=== PATIENT | female | born 1980 | race Caucasian/White ===

== ENCOUNTER → 2024-07-25 10:48 | Outpatient (REF) | payer OTHER, SELFPAY | LOC: HWWDC 10:48 | PROVIDERS: ATTENDING PHYSICIAN Physician Assistant Medical | DX: Z12.31 Encounter for screening mammogram for malignant neoplasm of breast (principal) | CPT/HCPCS: 77063; 77067 ==

== ENCOUNTER 2025-02-02 10:51 | Emergency (ER) | payer OTHER, SELFPAY ==
[2025-02-02 10:54] VITALS: BP 151/96
--- NOTE | 2025-02-02 12:42 | ED.GENMED ---
History of Present Illness
General
Chief Complaint: Musculo-Skeletal Complaint
Source: patient
Exam Limitations: none
Time Seen by Provider: 02/02/25 11:17
Nursing documentation reviewed up to this point in time: agreed with
History of Present Illness
History of Present Illness:
44-year-old female with no reported chronic medical issues presents to the ER for evaluation of right leg pain. Patient reports that symptoms started last week and have been constant since that time. She reports pain in the right hip and posterior
thigh radiates behind the knee. Worse with movement. No relieving factors noted. She says that she was seen by her PCP who started her on prednisone 10 mg daily as well as cyclobenzaprine for her symptoms; this was not helping and so yesterday
patient went to urgent care. She had an x-ray of her hip/low back and was increased to 20 mg daily of prednisone and given prescription for alternate muscle relaxer. These medicines still have not helped and so she came to the ER today for
evaluation. She has not had any low back pain. She denies any paresthesias. Weakness or numbness in the legs. Denies any bowel or bladder incontinence. She denies any trauma or injury. She said she has had sciatica in this leg before but never
to this degree.
Review of Systems
Review of Systems
All Other Systems: ROS reviewed and negative except as documented in HPI and ROS
ABD/GI: Denies abdominal pain
Musculoskeletal: Reports muscle pain (Right leg pain); Denies edema
Neurological: Denies headache, weakness or numbness
Phy Exam
Physical Exam
Physical Exam:
General: Awake, alert; no acute distress
Head: Normocephalic, atraumatic
Eyes: Conjunctiva normal
Throat: Airway intact, handling secretions
Neck: Trachea midline, supple without meningismus
Lungs: Breathing comfortably no distress
Heart: Mild tachycardia
Abd: Soft, non distended, nontender to deep palpation with no abdominal masses
Back: No tenderness in the lumbar or thoracic spine; positive straight leg raise on the right
Neuro: Cranial nerves grossly intact, speech fluid; motor and sensory intact in the lower extremities bilaterally
Extremities: No edema in extremities, equal pulses in all extremities�specifically strong femoral, popliteal, DP/PT pulses in the right lower extremity; she has some mild tenderness over the greater trochanter as well as in the posterior thigh in
the right leg
Scores
Heart Failure Risk
Heart Failure Risk Score: Not Applicable
Heart Score for Chest Pain Patients
STEMI patient?: Not applicable
Withdrawal Assessment of Alcohol
Withdrawal Assessment Completed?: Not applicable
Course
Orders/Labs/Results
Orders:
Orders
02/02/25 12:40
Oxycodone [Roxicodone] 5 mg PO NOW STA
US Periph Venous LOWER Ext RT Urgent
Comment:
Reason For Exam: right leg pain
02/02/25 12:49
Ketorolac [Toradol] 30 mg IM NOW STA
Vital Signs
Initial and Last Documented VS:
Initial Vital Signs
Temp Pulse Resp BP Pulse Ox
37.2 C 130 18 151/96 98
02/02/25 10:54 02/02/25 10:54 02/02/25 10:54 02/02/25 10:54 02/02/25 10:54
Last Documented Vital Signs
Temp Pulse Resp BP Pulse Ox
37.2 C 108 18 151/96 96
02/02/25 10:54 02/02/25 11:15 02/02/25 10:54 02/02/25 10:54 02/02/25 11:15
MDM/Problems Addressed
Differential Diagnosis Includes:
Lumbar radiculopathy/sciatica, muscle strain, DVT
MDM/Problems Addressed:
44-year-old female presents for evaluation of atraumatic pain in the right hip/posterior thigh; has had sciatica in the past but never this degree. Not responding to steroids and muscle relaxers. Vitals and exam as above. Will plan to check
ultrasound to rule out DVT. Pain control. Reassess.
Per tech, ultrasound prelim negative. Patient feeling better after treatment here. Stable for discharge with supportive care. Referral to orthopedist for follow-up. Patient comfortable with this plan. All questions answered.
*Radiology
Radiology exam reviewed: radiology read reviewed
*Pulse Oximetry
Patient hypoxic: no
*Critical Care Note
Total Time (30-74mins, 75-104mins- exclusive of procedures): Not Applicable
Data Reviewed
Source: patient and records (Outpatient records from urgent care)
ED Attending Note
-
Portions of this chart may have been created with voice recognition software.� Occasional wrong word or��sound alike� substitutions may have occurred due to the inherent limitations of voice recognition software.
Discharge Plan
Departure
Patient Disposition: Home (Routine Discharge)
Date of Disposition: 02/02/25
Time of Disposition: 14:02
Patient with high blood pressure during this ER visit?: Yes
Discharge Problem:
Leg pain, right
Instructions: Sciatica - ED discharge instructions
Prescriptions:
New
oxycodone 5 mg tablet
5 mg PO TID PRN (Reason: Pain) Qty: 10 0RF
gabapentin 100 mg capsule
100 mg PO TID PRN (Reason: pain) Qty: 20 0RF
Referrals:
Raf Bender MD [Active] - Call in 1-3 days for appt (Orthopedics)
Jaki Schmitt PA-C [Family Provider] -
Activity Restrictions/Additional Instructions:
Thank you for visiting the Emergency Department at [facility].
1. Please schedule a follow up appointment as directed. Call first thing tomorrow morning to make an appointment.
2. If indicated, please take your medications as instructed and indicated on discharge paperwork.
3. If any of your symptoms do not improve, or persist, or become more severe within 6-12 hours, please return to the emergency department for further care.
4. Please return to the emergency department if you develop a headache, neck pain/stiffness, fever greater than 100.4F, chest pain, shortness of breath, persistent nausea, vomiting, slurred speech, difficulty walking, numbness/tingling, weakness,
signs of infection or any other symptoms that are worrisome to you.
Please call [phone] if you have any questions.
Interventions
Interventions:
*Risk Screen - Suicide Last Done: 02/02/25 10:54
*General Assessment Last Done: 02/02/25 10:54
*Neglect/Abuse Screening Last Done: 02/02/25 10:54
*ED COVID-19 Vaccine History Last Done: 02/02/25 10:54
ED-Musculoskeletal Assessment Last Done: 02/02/25 11:16
Discharge Date and Time
Print Language: LATVIAN
[2025-02-02] MEDS: TORADOL 30 MG IM (12:55)
== END 2025-02-02 14:20 | disposition home or self-care (01) ==
LOC: EMR 10:51
PROVIDERS: EMERGENCY PHYSICIAN Emergency Medicine; FAMILY PHYSICIAN Physician Assistant Medical
DX: M79.604 Pain in right leg (principal); R03.0 Elevated blood-pressure reading, without diagnosis of hypertension
CPT/HCPCS: 99284; 96372; 93971

== ENCOUNTER 2025-07-24 13:03 | Inpatient (IN) | payer OTHER, SELFPAY ==
[2025-07-24] VITALS (9 sets, daily range): BP systolic 108–135; BP diastolic 48–89
--- NOTE | 2025-07-24 10:12 | ED.GENMED ---
History of Present Illness
<EUSEBIO Pan - Last Filed: 07/24/25 15:52>
General
Chief Complaint: Overdose Intentional
Source: patient
Exam Limitations: none
Time Seen by Provider: 07/24/25 10:00
Nursing documentation reviewed up to this point in time: agreed with
History of Present Illness
History of Present Illness:
Patient is a 45-year-old female with history anxiety depression on sertraline presents for intentional overdose. Patient reports 12 AM Wednesday morning ( about 36 hrs ago) she took which she believes approximately 24 tablets of Tylenol/500 mg (12
,000 mg ) each and approximate 24 tablets of ibuprofen 200 mg each (4800 mg ) In addition she took 4 of her Sertraline .
She presents with nausea vomiting abdominal discomfort.
No prior history of suicide attempt. She states that she' messed up financially, which precipitated the overdose.
She presents vomiting brown emesis. However awake alert able to give history.
Phy Exam
<EUSEBIO Pan - Last Filed: 07/24/25 15:52>
General Physical Exam
General Presentation: no apparent distress
General age: appears stated age
General Skin: warm and dry
General Habitus: normal
General Mental: alert
General Hydration: dry mucous membranes
Cardiovascular Exam
Cardiovascular Exam: no murmur and tachycardia
Pulmonary Exam
Pulmonary Exam: lungs clear and no respiratory distress
Neurological Exam
Neurological Exam: alert, oriented x3, no motor deficits and no sensory deficits
Musculoskeletal Exam
Musculoskeletal Exam: full ROM
Skin Exam
Skin Exam: normal color and warm/dry
Psychiatric Exam
Psychiatric Exam: normal mood/affect
Course
<EUSEBIO Pan - Last Filed: 07/24/25 15:52>
Orders/Labs/Results
Orders:
Orders
07/24/25 Lunch
Clear Liquid
07/24/25 10:07
IV Insert/Care/Rem.- Treatment PRN
Test Result ONCE
07/24/25 10:08
Electrocardiogram (*1) Stat
Reason for Study: Other
Other Reason for Exam: chest pain
Cardiac Monitoring- Treatment ONCE
EKG- Treatment ONCE
07/24/25 10:21
Ondansetron Injectable [Zofran] 4 mg .ROUTE .STK-MED ONE
07/24/25 10:26
Acetaminophen Urgent
Comment: ADD ON
Alcohol Urgent
Complete Blood Count/With Diff Urgent
Comprehensive Metabolic Panel Urgent
HCG, Urine Qualitative Screen Urgent
Date Specimen was Collected: 07/24/25
Time Specimen was Collected: 10:25
PT/INR [Prothrombin Time] Urgent
PTT Urgent
Salicylate Urgent
Urine Drug Abuse Screen Urgent
Date Specimen was Collected: 07/24/25
Time Specimen was Collected: 10:25
07/24/25 10:45
Pantoprazole [Protonix IV] 40 mg IV NOW STA
07/24/25 11:10
Add On- LAB Urgent
Tests Added?: acetaminophen
07/24/25 11:44
0.9% Sodium Chloride 1000 ml [Nss] 1,000 ml IV BOLUS
07/24/25 11:46
Lactated Ringers [Lr] 1,000 ml IV BOLUS
07/24/25 11:59
Acetylcysteine [Acetadote] 12,500 mg 0.45% Sodium Chloride 250 ml [0.45%NaCl] 200 ml IV NOW
07/24/25 12:03
Fomepizole 1,245 mg 0.9% Sodium Chloride 100 ml [Nss] 100 ml IV NOW
07/24/25 12:07
Venous Blood Gas Urgent
%Oxygen/Room Air: 21
07/24/25 12:21
GASTROINTESTINAL CONSULT Urgent
Consulting Provider: Lilliam Andres
Was physician already notified: Yes
Reason for consult: Tylenol/Ibuprofen overdose
07/24/25 12:37
Admit Patient As Directed
Co-Sign Provider:
Level of Care: Inpatient admission
Assign to:: ICU
Physician / Group: Hospitalists
Diagnosis: Tylenol/Ibuprofen overdose
Reason for Hospitalization: Tylenol/Ibuprofen overdose
Expected length of stay greater than two midnights?: Yes
ELOS- Estimated Length of Stay in days: 3
I certify the patient meets the requirements for IP care: Yes
Code Status As Directed
Resuscitation Status: Full Code
Bisacodyl [Dulcolax] 10 mg RECTAL [id number] PRN
Docusate W/Senna [Senokot-S] 1 tablet PO BIDPRN PRN
Polyethylene Glycol Powder [Miralax] 17 grams PO DAILYPRN PRN
Activity As Directed
Activity Level: As Tolerated
Vital Signs As Directed
Frequency: Per unit guidelines
Pulse Ox/spot Check [RESP] Routine
Quantity: 1
07/24/25 12:38
PRN Pain Medication Management As Directed
May give lesser potent ordered pain med per pt: Yes
preference::
Protocol:: Medication orders for pain may be administered in a
manner that supports deferring to patient preference
when the pt is:
- Requesting an ordered lesser potent pain medication.
Least to most potent pain medications are defined
as: acetaminophen < NSAID < tramadol < opioids
(morphine, oxycodone, hydromorphone).
- Requesting a lesser dose of the same medication IF
ORDERED.
- Requesting a less intrusive route of administration
if both routes are prescribed by the provider (PO <
IV).
07/24/25 12:39
Pneumatic Compression Sleeves As Directed
Type: Knee high
DX Deep Vein Thrombosis Video Routine
07/24/25 12:45
Admit/Transfer Patient As Directed
Co-Sign Provider:
Level of Care: Inpatient admission
Assign to:: ICU
Physician / Group: Hospitalists
Diagnosis: Tylenol/Ibuprofen overdose
Reason for Hospitalization: Tylenol/Ibuprofen overdose
Expected length of stay greater than two midnights?: Yes
ELOS- Estimated Length of Stay in days: 3
I certify the patient meets the requirements for IP care: Yes
0.9% Sodium Chloride 1000 ml [Nss] 1,000 ml IV 125 mls/hr
07/24/25 12:46
PRN Pain Medication Management As Directed
May give lesser potent ordered pain med per pt: Yes
preference::
Protocol:: Medication orders for pain may be administered in a
manner that supports deferring to patient preference
when the pt is:
- Requesting an ordered lesser potent pain medication.
Least to most potent pain medications are defined
as: acetaminophen < NSAID < tramadol < opioids
(morphine, oxycodone, hydromorphone).
- Requesting a lesser dose of the same medication IF
ORDERED.
- Requesting a less intrusive route of administration
if both routes are prescribed by the provider (PO <
IV).
07/24/25 12:50
Lactic Acid Urgent
07/24/25 12:51
Amylase Routine
CBC/No Diff [Complete Blood Count/No Diff] Urgent
CMP [Comprehensive Metabolic Panel] Urgent
Lipase Routine
PT/INR [Prothrombin Time] Urgent
Venous Blood Gas Urgent
%Oxygen/Room Air: 21
07/24/25 13:30
Acetylcysteine [Acetadote] 4,160 mg 0.45% Sodium Chloride 500 ml [0.45%NaCl] 500 ml IV ONCE
07/24/25 17:30
Acetylcysteine [Acetadote] 8,300 mg 0.45% Sodium Chloride 1000 ml [0.45%NaCl] 1,000 ml IV ONCE
07/25/25 06:00
Basic Metabolic Panel IN AM
Complete Blood Count/With Diff IN AM
Prothrombin Time IN AM
Abnormal Lab Results
07/24/25 07/24/25
10:26 12:07
WBC 13.0 H 10^3/uL
(4.8-10.8)
MPV 12.7 H fL
(7.4-10.4)
Absolute Neuts (auto) 12.0 H 10^3/uL
(1.4-6.5)
Absolute Lymphs (auto) 0.5 L 10^3/uL
(1.2-3.4)
Neutrophils % 92.2 H %
(42.2-75.2)
Lymphocytes % 3.9 L %
(20.5-51.1)
PT 30.7 H Sec
(11.4-14.6)
VBG HCO3 19.0 L mmol/L
(22-27)
Carbon Dioxide 13 L* mmol/L
(22-30)
BUN 25 H mg/dl
(7-17)
Total Bilirubin 5.6 H mg/dl
(0.2-1.3)
AST 2943 H* U/L
(14-36)
ALT 4225 H* U/L
(0-35)
Albumin 5.1 H g/dl
(3.5-5.0)
Salicylates < 1.0 L mg/dl
(2.0-20.0)
U Marijuana (THC) Screen Positive H
(Negative)
Vital Signs
Initial and Last Documented VS:
Initial Vital Signs
Pulse Resp Pulse Ox
114 16 98
07/24/25 09:52 07/24/25 09:52 07/24/25 09:52
Last Documented Vital Signs
Pulse Resp BP Pulse Ox
108 16 127/67 99
07/24/25 14:45 07/24/25 14:45 07/24/25 14:24 07/24/25 14:30
Break And Load Operator consulted with Physician
Break And Load Operator consulted with physician?: Yes
Name of Physician Consulted: Morgan
<Yusuf Mora MD - Last Filed: 07/24/25 14:39>
Orders/Labs/Results
Orders:
Orders
07/24/25 Lunch
Clear Liquid
07/24/25 10:07
IV Insert/Care/Rem.- Treatment PRN
Test Result ONCE
07/24/25 10:08
Electrocardiogram (*1) Stat
Reason for Study: Other
Other Reason for Exam: chest pain
Cardiac Monitoring- Treatment ONCE
EKG- Treatment ONCE
07/24/25 10:21
Ondansetron Injectable [Zofran] 4 mg .ROUTE .STK-MED ONE
07/24/25 10:26
Acetaminophen Urgent
Comment: ADD ON
Alcohol Urgent
Complete Blood Count/With Diff Urgent
Comprehensive Metabolic Panel Urgent
HCG, Urine Qualitative Screen Urgent
Date Specimen was Collected: 07/24/25
Time Specimen was Collected: 10:25
PT/INR [Prothrombin Time] Urgent
PTT Urgent
Salicylate Urgent
Urine Drug Abuse Screen Urgent
Date Specimen was Collected: 07/24/25
Time Specimen was Collected: 10:25
07/24/25 10:45
Pantoprazole [Protonix IV] 40 mg IV NOW STA
07/24/25 11:10
Add On- LAB Urgent
Tests Added?: acetaminophen
07/24/25 11:44
0.9% Sodium Chloride 1000 ml [Nss] 1,000 ml IV BOLUS
07/24/25 11:46
Lactated Ringers [Lr] 1,000 ml IV BOLUS
07/24/25 11:59
Acetylcysteine [Acetadote] 12,500 mg 0.45% Sodium Chloride 250 ml [0.45%NaCl] 200 ml IV NOW
07/24/25 12:03
Fomepizole 1,245 mg 0.9% Sodium Chloride 100 ml [Nss] 100 ml IV NOW
07/24/25 12:07
Venous Blood Gas Urgent
%Oxygen/Room Air: 21
07/24/25 12:21
GASTROINTESTINAL CONSULT Urgent
Consulting Provider: Lilliam Andres
Was physician already notified: Yes
Reason for consult: Tylenol/Ibuprofen overdose
07/24/25 12:37
Admit Patient As Directed
Co-Sign Provider:
Level of Care: Inpatient admission
Assign to:: ICU
Physician / Group: Hospitalists
Diagnosis: Tylenol/Ibuprofen overdose
Reason for Hospitalization: Tylenol/Ibuprofen overdose
Expected length of stay greater than two midnights?: Yes
ELOS- Estimated Length of Stay in days: 3
I certify the patient meets the requirements for IP care: Yes
Code Status As Directed
Resuscitation Status: Full Code
Bisacodyl [Dulcolax] 10 mg RECTAL [id number] PRN
Docusate W/Senna [Senokot-S] 1 tablet PO BIDPRN PRN
Polyethylene Glycol Powder [Miralax] 17 grams PO DAILYPRN PRN
Activity As Directed
Activity Level: As Tolerated
Vital Signs As Directed
Frequency: Per unit guidelines
Pulse Ox/spot Check [RESP] Routine
Quantity: 1
07/24/25 12:38
PRN Pain Medication Management As Directed
May give lesser potent ordered pain med per pt: Yes
preference::
Protocol:: Medication orders for pain may be administered in a
manner that supports deferring to patient preference
when the pt is:
- Requesting an ordered lesser potent pain medication.
Least to most potent pain medications are defined
as: acetaminophen < NSAID < tramadol < opioids
(morphine, oxycodone, hydromorphone).
- Requesting a lesser dose of the same medication IF
ORDERED.
- Requesting a less intrusive route of administration
if both routes are prescribed by the provider (PO <
IV).
07/24/25 12:39
Pneumatic Compression Sleeves As Directed
Type: Knee high
DX Deep Vein Thrombosis Video Routine
07/24/25 12:45
Admit/Transfer Patient As Directed
Co-Sign Provider:
Level of Care: Inpatient admission
Assign to:: ICU
Physician / Group: Hospitalists
Diagnosis: Tylenol/Ibuprofen overdose
Reason for Hospitalization: Tylenol/Ibuprofen overdose
Expected length of stay greater than two midnights?: Yes
ELOS- Estimated Length of Stay in days: 3
I certify the patient meets the requirements for IP care: Yes
0.9% Sodium Chloride 1000 ml [Nss] 1,000 ml IV 125 mls/hr
07/24/25 12:46
PRN Pain Medication Management As Directed
May give lesser potent ordered pain med per pt: Yes
preference::
Protocol:: Medication orders for pain may be administered in a
manner that supports deferring to patient preference
when the pt is:
- Requesting an ordered lesser potent pain medication.
Least to most potent pain medications are defined
as: acetaminophen < NSAID < tramadol < opioids
(morphine, oxycodone, hydromorphone).
- Requesting a lesser dose of the same medication IF
ORDERED.
- Requesting a less intrusive route of administration
if both routes are prescribed by the provider (PO <
IV).
07/24/25 12:50
Lactic Acid Urgent
07/24/25 12:51
Amylase Routine
CBC/No Diff [Complete Blood Count/No Diff] Urgent
CMP [Comprehensive Metabolic Panel] Urgent
Lipase Routine
PT/INR [Prothrombin Time] Urgent
Venous Blood Gas Urgent
%Oxygen/Room Air: 21
07/24/25 13:30
Acetylcysteine [Acetadote] 4,160 mg 0.45% Sodium Chloride 500 ml [0.45%NaCl] 500 ml IV ONCE
07/24/25 17:30
Acetylcysteine [Acetadote] 8,300 mg 0.45% Sodium Chloride 1000 ml [0.45%NaCl] 1,000 ml IV ONCE
07/25/25 06:00
Basic Metabolic Panel IN AM
Complete Blood Count/With Diff IN AM
Prothrombin Time IN AM
Abnormal Lab Results
07/24/25 07/24/25
10:26 12:07
WBC 13.0 H 10^3/uL
(4.8-10.8)
MPV 12.7 H fL
(7.4-10.4)
Absolute Neuts (auto) 12.0 H 10^3/uL
(1.4-6.5)
Absolute Lymphs (auto) 0.5 L 10^3/uL
(1.2-3.4)
Neutrophils % 92.2 H %
(42.2-75.2)
Lymphocytes % 3.9 L %
(20.5-51.1)
PT 30.7 H Sec
(11.4-14.6)
VBG HCO3 19.0 L mmol/L
(22-27)
Carbon Dioxide 13 L* mmol/L
(22-30)
BUN 25 H mg/dl
(7-17)
Total Bilirubin 5.6 H mg/dl
(0.2-1.3)
AST 2943 H* U/L
(14-36)
ALT 4225 H* U/L
(0-35)
Albumin 5.1 H g/dl
(3.5-5.0)
Salicylates < 1.0 L mg/dl
(2.0-20.0)
U Marijuana (THC) Screen Positive H
(Negative)
Vital Signs
Initial and Last Documented VS:
Initial Vital Signs
Pulse Resp Pulse Ox
114 16 98
07/24/25 09:52 07/24/25 09:52 07/24/25 09:52
Last Documented Vital Signs
Pulse Resp BP Pulse Ox
108 16 127/67 99
07/24/25 14:45 07/24/25 14:45 07/24/25 14:24 07/24/25 14:30
<EUSEBIO Pan - Last Filed: 07/24/25 15:52>
MDM/Problems Addressed
Differential Diagnosis Includes:
Not limited to acetaminophen overdose, liver failure
MDM/Problems Addressed:
Patient is a 45-year-old female presented due to delayed Tylenol ingestion. She took approximate 12,000 mg of Tylenol 12 AM yesterday approximate 36 hours ago along with 4800 mg of ibuprofen. She presented nausea vomiting since last night. She
presented awake alert and oriented and able to give history. Emesis is brown in color. No chest pain or trouble breathing. Case discussed with Dr. Mora who evaluated patient at bedside. Patient presented mildly tachycardic nauseous and vomiting
normal saline bolus and Zofran given. LFTs are significantly elevated with a bilirubin of 5.6, AST 2943, ALT 4225 and INR 2.96. Creatinine normal.
Case discussed with [facility] toxicology who does recommend N-acetylcysteine along with an one-time dose of fomepizole.
Patient received send for 1 L fluids toxicology does recommending bolusing a second liter of LR and then rechecking labs including LFTs and a VBG as well.
Patient will require transfer.
Dr Mora discussed with [facility] accepting physician is DR Espinoza however it is uncertain as to when patient will get a bed we will admit to this hospital until bed available at [facility] Case discussed admitting hospitalist GI made aware
1550: Called by patient's [id number] patient complaining of severe nausea again dry heaving. Zofran given FIrst dose of acetadote completed. d/c w/ pharmacy headache and nausea may be associated with fomepizole.
1400: Patient remains neurologically intact but complains of a headache some jaw discomfort. Repeat EKG done QTc 490 no other concerning symptoms. ED physician at bedside as well as blunger. Order stat CT decision made to fly patient [place]
transport present. pt remains neuro intact.
BED : [facility] telephone is : [phone]
Chronic conditions affecting care:
Depression
<EUSEBIO Pan - Last Filed: 07/24/25 15:52>
*Radiology
Radiology exam reviewed: radiology read reviewed
*Pulse Oximetry
SaO2: 98
Oxygen Mode of Delivery: Room air
Patient hypoxic: no
*EKG
Interpretation: normal
Heart Rate: 93
Rate: normal
Rhythm: sinus
Ischemia: no ischemia
*Critical Care Note
Total Time (30-74mins, 75-104mins- exclusive of procedures): Not Applicable
comment:
Critical care statement: A total of 40 minutes of critical care time was provided for this patient. This includes management of unstable vital signs, evaluation of the patient at bedside, reviewing the patient's pertinent medical records, discussion
with consultants, review of old EKGs and review of pertinent medical records. This time with separate from time utilized to perform the aforementioned documented procedures
ED Attending Note
<EUSEBIO Pan - Last Filed: 09/30/25 15:52>
-
Portions of this chart may have been created with voice recognition software.� Occasional wrong word or��sound alike� substitutions may have occurred due to the inherent limitations of voice recognition software.
<Yusuf Mora MD - Last Filed: 07/24/25 14:39>
ED Attending Note
Patient seen and examined by attending physician: Yes
I performed the substantive portion of visit, reviewed & personally made and approve the management plan that is documented in note by myself or KRISTIAN.: Yes
ED Attending Note:
Patient with overdose of Tylenol and Motrin about 36 hours ago. Took approximately 12 g of Tylenol and 4800 mg of Motrin. Shortly after had some nausea. Progression of nausea vomiting. Mild epigastric discomfort. Patient did this as a suicide
attempt but currently is not suicidal. No hematemesis or coffee-ground emesis. No melanotic or bloody stool.
On exam patient is nontoxic in no distress. Cooperative. Warm and dry. Perfusing well. Lungs clear and equal. Heart regular rate and rhythm no murmur. Abdomen soft with mild epigastric tenderness. No rebound or guarding no mass or hernia.
Very concerning for a Tylenol overdose. Based on her weight and amount ingested this would be a possible significant overdose in addition she has symptoms that have progressed over 48 hours. Also would consider gastritis or ulcer with the
ibuprofen. She took 4 sertraline however this should not be an issue at this time. Total bilirubin is elevated. Awaiting AST ALT. Clearly is having transaminitis and liver damage. Will contact poison control. Talk to our GI about admission
here versus transfer.
Poison control recommends acetaminophen and fomepizole. These were all ordered. Follow-up labs per poison control. Contacted [facility] discussed with them. Hepatology accepts. Awaiting transfer. There may be some delay in transfer. Will get our
hospitalist and GI physicians involved.
Patient has been rechecked multiple times. Has had ongoing nausea and some headaches. Remains alert. Does appear more uncomfortable than previously. Mildly tachycardic. Low yield but with headaches nausea and anticoagulated functionally we will
get a head CT. Contemplated more nausea med but QT interval is getting more prolonged. Had also contemplated a low-dose Valium or Ativan. But since we want to follow her mental status and she appears slightly improved after the previous Zofran we
will hold on this. We are awaiting helicopter for transport
Discharge Plan
Departure
Patient Disposition: Acute Care Hospital
Date of Disposition: 07/24/25
Time of Disposition: 12:13
Admit to: ICU
Admit to doctor: hospitalist
Patient with high blood pressure during this ER visit?: No
Condition: Fair
Covid-19: Not Applicable
Discharge Problem:
Intentional acetaminophen overdose, Intentional ibuprofen overdose, Elevated LFTs
Hospital Transfer
Other hospital: [facility]
I certify that the patient requires transfer: Yes
Discussed case with accepting physician: DR Espinoza
Reason for transfer: higher level of care
Interventions
Interventions:
*Risk Screen - Suicide Last Done: 07/24/25 09:52
*General Assessment Last Done: 07/24/25 10:42
*Neglect/Abuse Screening Last Done: 07/24/25 09:52
*ED- Fall Risk Assessment Last Done: 07/24/25 10:42
*ED COVID-19 Vaccine History Last Done: 07/24/25 10:42
*ED Influenza Vaccine History Last Done: 07/24/25 10:42
ED- Cardiac Assessment Last Done: 07/24/25 10:42
ED- Neurological Assessment Last Done: 07/24/25 10:42
ED-Psychological Assessment Last Done: 07/24/25 10:42
ED- Pulmonary Assessment Last Done: 07/24/25 10:42
[2025-07-24 10:42] LABS: Hematocrit 44.5 % (37.0-47.0); Hemoglobin 15.3 g/dL (12.0-16.0); Mean Corp Hgb Conc. 34.4 g/dL (33.0-37.0); Mean Corpuscular Volume 84.1 fL (81.0-99.0); Nucleated Red Blood Cells % 0 %; Platelet Count 229 10^3/uL (130-400); Red Cell Dist. Width 13.6 % (11.5-14.5)
[2025-07-24 11:01] LABS: INR 2.96; PT 30.7 Sec (11.4-14.6)
[2025-07-24 11:03] LABS: Albumin 5.1 g/dl (3.5-5.0); Alkaline Phosphatase 91 U/L (38-126); Blood Urea Nitrogen 25 mg/dl (7-17); Calcium 9.6 mg/dl (8.4-10.2); Carbon Dioxide 13 mmol/L (22-30); Chloride 104 mmol/L (98-107); Glucose 88 mg/dl (70-99); Potassium 4.0 mmol/L (3.5-5.1); Salicylate < 1.0 mg/dl (2.0-20.0); Sodium 137 mmol/L (135-145); Total Protein 8.1 g/dl (6.3-8.2); eGFR > 60.00
[2025-07-24] MEDS: PROTONIX IV 40 MG IV (11:06)
[2025-07-24 11:09] LABS: APTT 31.9 Sec (23.4-35.0)
[2025-07-24 11:30] LABS: Acetaminophen 24 ug/ml (10-30)
[2025-07-24 11:42] LABS: ALT (SGPT) 4225 U/L (0-35); AST (SGOT) 2943 U/L (14-36)
[2025-07-24 12:04] LABS: HCG, Urine Qualitative Screen Negative
[2025-07-24 12:12] LABS: Venous Blood Gas B.E. -6.2 mmol/L (-4 to +4); Venous Blood Gas O2 Sat % 79.8 %
[2025-07-24] MEDS: LR 1000 IV (12:13)
[2025-07-24] MEDS: FOMEPIZOLE 101.245 MG IV (12:30)
--- NOTE | 2025-07-24 12:30 | CON.GI ---
Addendum entered and electronically signed by Lilliam Andres MD 07/24/25 15:43:
I saw and examined the patient.
The ASPHALT COATER's note was reviewed and I agree with the note.
Comment: This is a 45-year-old female with past medical history of anxiety, depression, who presented to the emergency room following an intentional overdose almost 36 hours ago with 24 tablets of 500 mg of Tylenol (12,000 mg) and 24 tablets of 200
mg ibuprofen ( 4800 mg)and 4 tablets of 100 mg (400 mg) of sertraline. She started to have epigastric pain with nausea vomiting and also had a small amount of coffee-ground emesis and presented to the emergency room, currently denies any suicidal
ideation. On admission she was noted to have significant transaminitis with ALT of 4225 AST of 2943 total bilirubin of 5.6 INR of 2.96 with acidosis BUN of 25 creatinine of 0.9. Her acetaminophen level was 24 salicylates were less than 1 UDS
positive for marijuana.. Upon arrival toxicology was consulted and was started on N-acetylcysteine, fomepizole and IV fluids and [facility] transfer center was called and patient was accepted for transfer for drug-induced liver toxicity.
Assessment and plan DILI from acetaminophen overdose and also overdose with ibuprofen and sertraline. Currently she is not encephalopathic and her INR is 2.96 with significantly elevated transaminitis and also has elevated bilirubin. She also has
metabolic acidosis. High risk for fulminant hepatic failure and may need OLT if she decompensates. Continue N-acetylcysteine and she also received fomepizole and currently also on IV fluids. She also received pantoprazole. She may have acute
gastritis or PUD from excessive NSAID ingestion. she has been accepted for transfer to [facility] and currently being transferred.
Original Note:
Consultation
-
Date/Time Consultation Requested: 07/24/25 1230
Date/Time Consultation Performed: 07/24/25 1230
Requesting Provider: EUSEBIO Delgado
Performing Provider: EUSEBIO Lopez, Lilliam Andres MD
Reason for Consultation: Tylenol overdose
Medical History
Chief Complaint / HPI
Chief Complaint: nausea/vomiting
History of Present Illness:
Pt is a 45yo with hx depression, anxiety, insomnia, prior with presentation for intentional overdose due to financial issues. Per review with ER and patient at 12 AM Wednesday (36 hours prior to admission--took 24 tablets of 500mg
Acetaminophen (12,000) and 24 tablets of tablets to 200mg Ibuprofen(4800mg) and Sertraline 4 tablets ( 400mg). In ER patient was started on Acetylcysteine protocol and Fomepizole per [facility] toxicology along with IVF management. Pt other
chronic meds include Sertraline 100mg daily and Zyrtec PRN. Pt has been accepted by [facility] hepatology Dr. Espinoza and awaiting bed. On admission WBC 13,000, Na 137, K 4, cl 103, Co2 13, BUN 25, creat 0.9, bili 5.6, AST 2943, ALT 4225, alk phos 91
albumin 5.1, INR 2.96. Acetaminophen level 24 and Salicylates <1 with + marijuana otherwise neg tox and ETOH screen.
In review with patient she admits to feeling stressed with ingestion. She now denies suicidal ideation. She began with vomiting and reviewed with spouse about ingestion and presented for evaluation. She admits to vomiting multiple times and
seeing dark emesis. She did have some abdominal pain with vomiting. She denies odynophagia, dysphagia, GERD, diarrhea, constipation or rectal bleeding.
Past Medical History
Past Medical History: Psychiatric (depression, anxiety ) and Other (insomnia, seasonal allergies )
Past Surgical History:
Social History
Tobacco: Smoker (2-3 packs per day )
Alcohol: Former (heavy in her 20's)
Drug: Marijuana
Personal:
Living: With Family
Employment: Employed
Family History
Family History: Other (no family hx gi, liver or suicidal issues )
Allergies / Home Medications
Allergy/AdvReac Type Severity Reaction Status Date / Time
No Known Allergies Allergy Verified 02/02/25 10:58
�Medication �Instructions �Recorded
cetirizine 10 mg tablet (Zyrtec) 10 mg PO DAILYPRN PRN ALLERGIES 07/24/25
sertraline 100 mg tablet 100 mg PO HS 07/24/25
Review of Systems
-
History Source: Patient and Family
Constitutional: Reports Weight Gain (few lbs )
EENT: Reports No Symptoms
Respiratory: Reports No Symptoms
Cardiac: Reports No Symptoms
Abdomen/GI: Reports Abdominal Pain, Nausea and Vomiting (dark emesis prior to admission)
: Reports No Symptoms
Musculoskeletal: Reports No Symptoms
Skin: Reports No Symptoms
Endocrine: Reports No Symptoms
Hematologic/Lymphatic: Reports No Symptoms
Vital Signs
Pulse Resp BP Pulse Ox
107 19 108/48 98
07/24/25 11:43 07/24/25 11:43 07/24/25 11:52 07/24/25 11:52
Physical Exam
Exam
General: Well Developed, Well Nourished and Other (noted tearful with current issues )
HEENT: Normocephalic and Anicteric
Respiratory: Clear
Cardiac: Other (tachy )
GI: Soft, Non Distended and Tender (minimal )
Musculoskeletal: No Clubbing and No Cyanosis
Skin: Warm and Dry
Neuro: Awake, Alert and AO x 3
Psych: Calm
Results
WBC 13.0 10^3/uL (4.8-10.8) H 07/24/25 10:26
Hgb 15.3 g/dL (12.0-16.0) 07/24/25 10:26
Hct 44.5 % (37.0-47.0) 07/24/25 10:26
MCV 84.1 fL (81.0-99.0) 07/24/25 10:26
Plt Count 229 10^3/uL (130-400) 07/24/25 10:26
Absolute Neuts (auto) 12.0 10^3/uL (1.4-6.5) H 07/24/25 10:26
PT 30.7 Sec (11.4-14.6) H 07/24/25 10:
INR 2.96 07/24/25 10:
APTT 31.9 Sec (23.4-35.0) 07/24/25 10:
Sodium 137 mmol/L (135-145) 07/24/25 10:
Potassium 4.0 mmol/L (3.5-5.1) 07/24/25 10:
Chloride 104 mmol/L (98-107) 07/24/25 10:
Carbon Dioxide 13 mmol/L (22-30) L* 07/24/25 10:
BUN 25 mg/dl (7-17) H 07/24/25 10:
Creatinine 0.9 mg/dL (0.6-1.0) 07/24/25 10:
Calcium 9.6 mg/dl (8.4-10.2) 07/24/25 10:
Total Bilirubin 5.6 mg/dl (0.2-1.3) H 07/24/25 10:26
AST 2943 U/L (14-36) H* 07/24/25 10:
ALT 4225 U/L (0-35) H* 07/24/25 10:
Alkaline Phosphatase 91 U/L (38-126) 07/24/25 10:26
Diagnostic Image Results:
no imaging completed
Assessment / Plan
-
Pt is a 45yo with hx depression, anxiety, insomnia, prior with presentation for intentional overdose due to financial issues. Per review with ER and patient at 12 AM Wednesday (36 hours prior to admission--took 24 tablets of 500mg
Acetaminophen (12,000) and 24 tablets of tablets to 200mg Ibuprofen(4800mg) and Sertraline 4 tablets ( 400mg). In ER patient was started on Acetylcysteine protocol and Fomepizole per [facility] toxicology along with IVF management. Pt other
chronic meds include Sertraline 100mg daily and Zyrtec PRN. Pt has been accepted by [facility] Dr. Espinoza and awaiting bed. On admission WBC 13,000, Na 137, K 4, cl 103, Co2 13, BUN 25, creat 0.9, bili 5.6, AST 2943, ALT 4225, alk phos 91
albumin 5.1, INR 2.96. Acetaminophen level 24 and Salicylates <1 with + marijuana otherwise neg tox and ETOH screen. In review with patient she admits to feeling stressed with ingestion. She now denies suicidal ideation. She began with vomiting
and reviewed with spouse about ingestion and presented for evaluation. She admits to vomiting multiple times and seeing dark emesis. She did have some abdominal pain with vomiting.
-intentional overdose 36 hours prior to admission with 24 tablets of 500mg Acetaminophen (12,000) and 24 tablets of tablets to 200mg Ibuprofen(4800mg) and Sertraline 4 tablets ( 400mg)
-liver dysfunction secondary to overdose with INR 2.96, marked elevated LFT's
-dark emesis
-acidosis
-depression/anxiety with concern for overdose due to finacial stress
other med problems:
-insomnia
-prior
PLAN:
etiology of liver dysfunction related to Tylenol overdose reliable history with ingestion 36 hours prior to admission
agree with initiation of poison control with Acetylcysteine infusion, Fomepizole infusion
with concern for acute liver injury pt will need tertiary care center for transplant availability
avoid all hepato toxic medication
monitor mental status closely with neuro checks
Pt awaiting bed at [facility]--I offered other liver centers for evaluation but review with [facility] liver liaison and pt has bed assigned at this time-- I asked if any change in status to notify GI and will reach out to other center
close lab monitor til transfer recheck at 6 pm if not transferred at that time
cont to correct acidosis per medical team
monitor for any recurrent hematemesis- trend hbg
updated patient and mother in law on severity of illness all questions answered
reviewed with ER MD and [employer]H[facility] COATER
-
-
Thank you for consultation and allowing me to participate in the patient's care. Please call the director mobile media solutions GI physician during the after hours with any questions or concerns.
[2025-07-24] MEDS: ACETADOTE 262.5 MG IV (12:39)
--- NOTE | 2025-07-24 13:09 | HPS.HSE ---
Family Physician
-
Family Physician: Jaki Schmitt
Chief Complaint
-
Intractable vomiting s/p Tylenol and ibuprofen overdose
History of Present Illness
Patient is a 45-year-old female with past medical history significant for depression, seasonal allergies who presented to ED with multiple episodes of vomiting overnight. She ingested 24 (500 mg Tylenol) tablets and 24 (200 mg ibuprofen )tablets
last night. 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 She ingested
those tablets around 12 AM Wednesday morning, she presented to the ED about 36 hours later due to intractable vomiting overnight. She had repeated episodes of vomiting, initially containing food particles and then they were dark brown in color. She
did not note any fresh blood in it. In addition she also took 4 tablets of sertraline. Her [id number] brought her to the hospital, since coming to the ER she has had additional 2 episodes of vomiting. She reports some mild headache and nausea
but denies any abdominal pain. She reports sore throat from repeated vomiting .
She remains teary-eyed throughout the interview, she said she did not had any suicidal thoughts prior to that but she got overwhelmed and in that moment she just took them to fall asleep and and the suffering.
Medical History
Past Medical History
Past Medical History: Reports Psychiatric (Depression, seasonal allergies)
Past Surgical History: Reports None
Social History
Tobacco: Smoker (Smokes 2 to 3 packs a week)
Alcohol: Occasional
Drug: Marijuana (vapes)
Personal:
Living: With Family (, 2 boys, her cats and dog)
Employment: Employed (Desk job)
Family History
Family History: Not pertinent
Allergies / Home Medications
Allergies reflects when Allergies were last updated in [facility].
Home Medications with original date entered in [facility]
Allergy/Medication List:
Allergies
Allergy/AdvReac Type Severity Reaction Status Date / Time
No Known Allergies Allergy Verified 02/02/25 10:58
Home Medications
cetirizine 10 mg tablet (Zyrtec) 10 mg PO DAILYPRN PRN ALLERGIES 07/24/25
sertraline 100 mg tablet 100 mg PO HS 07/24/25
Review of Systems
-
History Source: Patient
A 12 point ROS was completed and negative except as noted: Yes
Physical Exam
Vital Signs
Vital Signs
Pulse Resp BP Pulse Ox
107 19 108/48 98
07/24/25 11:43 07/24/25 11:43 07/24/25 11:52 07/24/25 11:52
Physical Exam
General: Well Developed, Well Nourished and No Apparent Distress
HEENT: NormoCephalic, Moist mucous membranes and Other (Scleral icterus)
Respiratory: Clear; No Wheezes, Rales or Rhonchi
Cardiac: S1/S2 and Regular Rhythm
GI: Soft, Non Tender and Normal Bowel Sounds
Musculoskeletal: No Clubbing, No Cyanosis and No Edema
Skin: Warm and Dry
Neuro: Awake, AO x 3 and Nonfocal/grossly intact
Psych: Calm
Laboratory Results
-
Laboratory Results
PT 30.7 Sec (11.4-14.6) H 07/24/25 10:26
INR 2.96 07/24/25 10:26
APTT 31.9 Sec (23.4-35.0) 07/24/25 10:26
Total Bilirubin 5.6 mg/dl (0.2-1.3) H 07/24/25 10:26
AST 2943 U/L (14-36) H* 07/24/25 10:26
ALT 4225 U/L (0-35) H* 07/24/25 10:26
Alkaline Phosphatase 91 U/L (38-126) 07/24/25 10:26
Impression/Plan
-
IMPRESSION:
Patient is a 45-year-old female with past medical history significant for depression and seasonal allergies. She came in the ED with multiple episodes of vomiting. She ingested 24 tablets of Tylenol and 24 tablets of ibuprofen along with 4 tablets
of sertraline. Liver enzymes elevated with AST greater than 2000 and ALT greater than 4000, metabolic acidosis, bilirubin 5.6 and INR of 2.96.
ASSESSMENT/PLAN:
# Tylenol/ibuprofen overdose
Presented 36 hours after ingesting 24 tablets of Tylenol/24 tablets of ibuprofen with intractable vomiting
Elevated liver enzymes (AST 2934, ALT 4225), metabolic acidosis
Received IV fluids and N-acetylcysteine along with omeprazole and fomepizole in the ER
Check ammonia levels, check acetaminophen levels every 8 hours, check lactate levels every 6 hours
N.p.o.
Continue IV fluids
Repeat BMP and INR every 4 hours
GI consult
Psychiatry consult
Ship Superintendent consult
Hold her sertraline, continue omeprazole for GI prophylaxis
Awaiting [facility] transfer
#Elevated liver enzymes secondary to Tylenol/ibuprofen overdose
Continue to monitor every 4 hours
Continue NAC
GI consult
#Depression
Hold sertraline
Consult psych
#Seasonal allergies
DVT prophylaxis-sequential compression devices
CODE STATUS-full code
--- NOTE | 2025-07-24 13:32 | W.PN.UPDATE ---
Update Note
Progress Note Update
45-year-old female with depression and seasonal allergies presenting to the ED following an intentional overdose. Patient reports on this past Wednesday morning she suffered a financial stressor and developed stress response in which she took 24
tablets of 500 mg Tylenol and 24 tablets of 200 mg ibuprofen as well as 4 tablets of her 100 mg sertraline. She developed nausea and vomiting which prompted her to come into the emergency department. Denies suicidal ideation despite her history.
Upon arrival [facility]. Initial chemistries with bicarb 13, BUN 25, T. bili 5.6, AST 2943, ALT 4225, INR 2.96, WBC 13. VBG with pH 7.3, pCO2 36, bicarb 19. Toxicology screen with negative salicylates, positive marijuana, acetaminophen level 24,
otherwise unremarkable. Toxicology was consulted in the ED and she was started on N-acetylcysteine, fomepizole x 1, and IV fluids. Transfer center was notified and currently pending transfer to [facility]
AO x 4, appears unwell, no asterixis. MMM, mild scleral icterus, no jaundice. Tachycardic and regular though otherwise benign cardiopulmonary. RUQ tenderness without peritoneal signs, nondistended, NBS present. Skin otherwise warm and dry, no
rash. No edema, palpable peripheral pulses. No focal neurologic deficits.
#Acute drug-induced liver injury with acetaminophen. Transaminases in the range of 4000, INR 3.0 though no encephalopathy. Concern for progression to FCI. S/p fomepizole x 1 and 1 dose NAC. Continue with N-acetylcysteine and trend acetaminophen
concentration Q8 and LFTs Q4. Continue with maintenance IV fluids. Monitor mental status for signs of encephalopathy. Strict avoidance of hepatotoxins. Pending transfer to [facility], may ultimately need transplant if worsening. ICU consult
#Anion gap metabolic acidosis. Likely secondary to Tylenol derivatives. Initial bicarb 13, VBG with pH 7.33. Will continue to trend BMP and VBG on IV fluids. Suspect this will improve readily
#Ibuprofen intoxication. Received 1 dose of IV PPI. Will continue twice daily PPI for ulcer prophylaxis. Also continue with IV fluids and strictly avoid nephrotoxic agents for renal protective effects.
#Suicide attempt. Consult psychiatry, may not leave AMA pending their evaluation.
Diet -- CLD
Thromboprophylaxis -- SCDs, INR 2.96
CODE STATUS -- Full
I have independently evaluated the patient at the bedside. I will be admitting Jayashree Lyons to the ICU. She is at high risk for worsening morbidity and mortality due to acute liver injury at risk for liver failure due to acetaminophen
intoxication. She will require intensive monitoring of her LFTs and readjustment to her recovery regimen. She may require liver transplant. I have discussed this case with the ED attending, helicopter pilot, stabber. I have also reviewed
the case with the resident and agree with all documentation unless otherwise specified.
Pending transfer to [facility] for potential liver transplant
[2025-07-24] MEDS: ACETADOTE 520.8 MG IV (14:06)
--- NOTE | 2025-07-24 14:59 | CON.INTV ---
Consultation
Consultation Request
Date/Time Consultation Requested: 07/24/25 12:21
Date/Time Consultation Performed: 07/24/25 13:30
Requesting Provider: Jonathan Iyer MD (Resident)
Performing Provider: Ryan Da Silva DO (Resident), Mary Jo Wong MD
Reason for Consultation: Acute Liver Failure
Medical History
-
Chief Complaint: Tylenol/Ibuprofen O/D, Nausea, Vomiting
History of Present Illness:
Jayashree Lyons is a 45F w/ PMHx of MIKEL, MDD, who presented to the ED today after an intentional overdose with acetaminophen and ibuprofen. Patient endorses taking 24 500 mg pills of acetaminophen and 24 200 mg pills of Ibuprofen after learning of
some financial stressors. Additionally, she took 4 100 mg pills of Sertraline, which she is on for MIKEL/MDD. She took these pills 36 hours ago, and then went to bed. She endorses then getting up twice in the middle of the night to vomit. Patient
continued to vomit through the day yesterday, and this what eventually prompted her to come to the ED.
ED COURSE
Patient was tachycardic in the ED, nauseous and actively vomiting.
Initial CMP showed AGMA with HCO3 13, T.Bili 5.6, AST 2943, ALT 4225, INR 2.96.
VBG showed pH 7.33, pCO2 36, and HCO3 19.
UDS was positive for marijuana, with Acetaminophen level of 24 (wnl).
EKG was NSR, but showed a prolonged QT.
She was initially treated with Zofran and Protonix for nausea, but Zofran discontinued due to prolonged QT.
Fluid resuscitation was started with 1L NS, but transitioned to LR in setting of AGMA.
She was given 12.5g NAC, and 1.245g Fomepizole.
Past Medical History
Past Medical History: Other (MIKEL, MDD, seasonal allergies)
Past Surgical History: None
Social History
Tobacco: Smoker
Alcohol: Occasional
Drug: Marijuana
Allergies / Home Medications
Allergies
Allergy/AdvReac Type Severity Reaction Status Date / Time
No Known Allergies Allergy Verified 02/02/25 10:58
Home Medications
�Medication �Instructions �Recorded �Confirmed �Last Taken �Type
cetirizine 10 mg tablet (Zyrtec) 10 mg PO DAILYPRN PRN ALLERGIES 07/24/25 07/24/25 Unknown History
sertraline 100 mg tablet 100 mg PO HS 07/24/25 07/24/25 07/23/25 History
Review of Systems
-
History Source: Patient
All other systems: Negative unless noted
Vitals / Labs / Diagnostic Testing
Vital Signs
Pulse Resp BP Pulse Ox
109 18 127/67 98
07/24/25 14:24 07/24/25 14:24 07/24/25 14:24 07/24/25 14:24
Laboratory Results
07/24/25
10:26
PT 30.7 H
INR 2.96
APTT 31.9
Diagnostic Testing:
Physical Exam
-
HEENT: Normocephalic, Anicteric and Other (Dry MM)
Cardiovascular: S1/S2, Regular Rhythm and Other (tachycardia)
Respiratory: Non-Labored Respirations
GI: Tender (epigastrium)
Neurology: Awake, Oriented and Other (no tremors)
Skin: Warm, Dry and Other (nonjaundiced)
Assessment
-
Jayashree Lyons is a 45 w/ PMHx of MDD and MIKEL who presented to the ED with intractable vomiting in the setting of ingestion of 12g of acetaminophen and 4.8g of Ibuprofen 36 hours prior to arrival and found to have drug induced liver injury and
impending acute liver failure with AST/ALT 2900/4200, Tbili 5.6, INR 2.96, as well as anion-gap metabolic acidosis.
ASSESSMENT
Acetaminophen Overdose
Ibuprofen Overdose
Attempted Suicide
Drug induced Liver Injury
DILI-related Acute Liver Failure
Liver Injury Associated Elevation in PT/INR
Anion Gap Metabolic Acidosis
QT prolongation
PLAN
Plan for transfer to [place] via air
S/p 1 dose fomepizole. Continue NAC in the setting of liver injury, despite being out of time range of [facility]
Continue to trend Acetaminophen levels
Serial CMP q4h, Serial VBG/ABG, Serial INR
Obtain Ct Head/Brain to evaluate for cerebral edema in the setting of acute liver failure
Obtain Ammonia level in setting of acute liver failure
Obtain Lactate level in setting of AGMA/acute liver failure
Continue PPI PPx in the setting of Ibuprofen o/d
Avoid hepatotoxic/nephrotoxic/QT prolonging medications
Continue maintainence fluid with LR
Data Reviewed
-
EKG: Tracing personally visualized and interpreted and Report reviewed by me
Labs: Labs reviewed by me
Critical Care Time (in minutes): 40
== END 2025-07-24 16:00 | disposition short-term general hospital (02) | DRG 917 ==
LOC: ED 13:03
PROVIDERS: Nurse Practitioner; ADMITTING PHYSICIAN Internal Medicine; CONSULT PHYSICIAN Internal Medicine Gastroenterology; EMERGENCY PHYSICIAN Emergency Medicine; FAMILY PHYSICIAN Physician Assistant Medical; OTHER PHYSICIAN Internal Medicine
DX: T39.1X2A Poisoning by 4-Aminophenol derivatives, intentional self-harm, initial encounter (principal); K72.00 Acute and subacute hepatic failure without coma; E87.20 Acidosis, unspecified; T39.312A Poisoning by propionic acid derivatives, intentional self-harm, initial encounter; T43.222A Poisoning by selective serotonin reuptake inhibitors, intentional self-harm, initial encounter; R11.2 Nausea with vomiting, unspecified; Y92.009 Unspecified place in unspecified non-institutional (private) residence as the place of occurrence of the external cause; F32.9 Major depressive disorder, single episode, unspecified; J30.2 Other seasonal allergic rhinitis; K71.9 Toxic liver disease, unspecified; F17.200 Nicotine dependence, unspecified, uncomplicated; G47.09 Other insomnia; F41.1 Generalized anxiety disorder; Z59.86 Financial insecurity; Z98.891 History of uterine scar from previous surgery
CPT/HCPCS: 70450; 80053; 80143; 80179; 80306; 81025; 82077; 82805; 85025; 85610; 85730; 93005; 96361; 96365; 96366; 96375; 99291; J0132; J1451; J7030